=== PATIENT | female | born 1955 | race Caucasian/White ===

== ENCOUNTER → 2016-09-02 | Outpatient (CLI) | payer BC ==
--- NOTE | 2016-09-05 07:12 | USB ---
Reason for exam: clinical finding. History: Patient is postmenopausal. Family history of breast cancer in sister at age 60. Took estrogen for 5 years 9 months beginning at age 49. US Breast LT Left breast ultrasound including all four quadrants, the retroareolar region and axilla demonstrates no cystic or solid lesion seen. These results were verbally communicated with the patient and result sheet given to the patient on 09/02/16. ASSESSMENT: Negative, BI-RAD 1 RECOMMENDATION: Routine screening mammogram of both breasts in 1 year. Manage patient on a clinical basis.
--- NOTE | 2016-09-05 07:12 | MM ---
Reason for exam: clinical finding. Last mammogram was performed 10 months ago. History: Patient is postmenopausal. Family history of breast cancer in sister at age 60. Took estrogen for 5 years 9 months beginning at age 49. Physical Findings: Nurse did not find any significant physical abnormalities on exam. MG 3D Diag Mammo W/Cad VIRGEN Bilateral CC and MLO view(s) were taken. Prior study comparison: October 26, 2015, bilateral MG screening mammo w CAD. The breast tissue is heterogeneously dense. This may lower the sensitivity of mammography. No significant new findings when compared with previous films. These results were verbally communicated with the patient and result sheet given to the patient on 09/02/16. ASSESSMENT: Benign, BI-RAD 2 RECOMMENDATION: Routine screening mammogram of both breasts in 1 year. Manage patient on a clinical basis.
== END | disposition home or self-care (01) ==
LOC: RADMAMWWP 13:23
PROVIDERS: ATTEND Family Medicine
DX: N64.52 Nipple discharge (principal)
CPT/HCPCS: 76641; G0204; G0279

== ENCOUNTER → 2018-03-28 | Outpatient (CLI) | payer BC ==
--- NOTE | 2018-03-30 11:47 | MM ---
Reason for exam: screening (asymptomatic). Last mammogram was performed 1 year and 7 months ago. History: Patient is postmenopausal. Family history of breast cancer in sister at age 60. Took estrogen for 5 years 9 months beginning at age 49. Physical Findings: A clinical breast exam by your physician is recommended on an annual basis and results should be correlated with mammographic findings. MG 3D Screening Mammo W/Cad Bilateral CC and MLO view(s) were taken. Prior study comparison: September 02, 2016, bilateral MG 3d diag mammo w/cad VIRGEN. October 26, 2015, bilateral MG screening mammo w CAD. No significant changes when compared with prior studies. ASSESSMENT: Benign, BI-RAD 2 RECOMMENDATION: Routine screening mammogram of both breasts in 1 year.
== END | disposition home or self-care (01) ==
LOC: RADMAMWWP 12:57
PROVIDERS: ATTEND Family Medicine
DX: Z12.31 Encounter for screening mammogram for malignant neoplasm of breast (principal)
CPT/HCPCS: 77063; 77067

== ENCOUNTER → 2018-07-30 | Outpatient (CLI) | payer BC ==
--- NOTE | 2018-07-31 11:30 | USB ---
Reason for exam: clinical finding. Patient complains of intermittent left breast pain and lump for 2 months. History: Patient is postmenopausal. Family history of breast cancer in sister at age 60. Took estrogen for 5 years 9 months beginning at age 49. Physical Findings: Nurse Summary: Small pea size tender nodule at patients area of concern. US Breast LT complete breast ultrasound includes all four quadrants, the retroareolar region and axilla. Finding demonstrates no cystic or solid lesion seen. ASSESSMENT: Negative, BI-RAD 1 RECOMMENDATION: Clinical management of the left breast manage left breast pain on a clinical basis. Routine screening mammogram of both breasts in 8 months.
== END ==
LOC: RADUSWWP 14:55
PROVIDERS: ATTEND Family Medicine
DX: N64.4 Mastodynia (principal)

== ENCOUNTER → 2018-09-06 | Outpatient (CLI) | payer BC ==
[2018-09-06 16:03] VITALS: BP 111/71; PULSE 62; RESP 18; TEMP 97
--- NOTE | 2018-09-06 16:45 | P.GSHP ---
History of Present Illness H&P Date: 09/06/18 Chief Complaint: left breast lump Lulu is a 62-year-old white female who presents with a complaint of a area of increased nodularity and tenderness in the lateral aspect of the left breast. She had a bilateral mammogram in March 2018 which was BIRADS 1. The patient then in May noted an area of increased nodularity in the lateral aspect of the left breast and an ultrasound was performed in July 2018 which did not reveal any cystic or solid lesions. She states that the area of nodularity is pea-sized and freely mobile. She states it is also tender. The patient states she did have something like this in the past and she decreased her caffeine intake with decrease in the tenderness and size of the lesion. The patient drinks one cup of coffee in the morning and an ice tea at lunch. The patient does not smoke nor she exposed to secondhand smoke. The patient eats chocolate on a daily basis. Family History: sister: breast cancer at 60 Hormonal History: menarche: 9 : 3, 3 children, breast fed: yes, first at 26 menopause: 50 BCP: none caused migrains hormone: hormones for 10 years; off for 12 years Surgical history: 1. Tonsils and adenoids 2. 3 C-sections 3. Hiatal hernia repair Medical history: 1.hypothyroid 2. essential tremor Social History: smoke: none alcohol: two glasses of wine/day drugs: none - Constitutional Constitutional: Denies chills, Denies fever - EENT Eyes: denies blurred vision, denies pain Ears: deny: decreased hearing, tinnitus Ears, nose, mouth and throat: Reports headache - Breasts Breasts: bilateral: as per HPI - Cardiovascular Cardiovascular: Denies chest pain, Denies shortness of breath - Respiratory Respiratory: Denies cough, Denies 7 - Gastrointestinal Gastrointestinal: Denies abdominal pain, Denies diarrhea, Denies nausea, Denies vomiting - Genitourinary (Female) Genitourinary: Denies dysuria, Denies hematuria - Menstruation Menstruation: Reports postmenopausal - Musculoskeletal Comment: arthritis Musculoskeletal: Reports muscle cramps - Integumentary Integumentary: Denies pruritus, Denies rash - Neurological Comment: Essential tremor Neurological: Denies numbness, Denies weakness - Psychiatric Psychiatric: Denies anxiety, Denies depression - Endocrine Comment: hypothyroid Endocrine: Denies fatigue, Denies weight change - Hematologic/Lymphatic Comment: none - Allergic/Immunologic Allergic/Immunologic: Reports seasonal allergies Past Medical History Past Medical History: Thyroid Disorder Additional Past Medical History / Comment(s): essential tremor History of Any Multi-Drug Resistant Organisms: None Reported Past Surgical History: Adenoidectomy, Section, Hernia Repair, Tonsillectomy Additional Past Surgical History / Comment(s): section x3 1980, 1981, 1986; Smoking Status: Never smoker - Past Family History Father Additional Family Medical History / Comment(s): heart disease Mother Additional Family Medical History / Comment(s): heart disease Sister(s) Family Medical History: Cancer Additional Family Medical History / Comment(s): breast cancer Medications and Allergies Home Medications Medication Instructions Recorded Confirmed Type Baclofen [Lioresal] 10 mg PO HS 09/06/18 09/06/18 History Cetirizine HCl [Zyrtec] 10 mg PO HS 09/06/18 09/06/18 History Fluticasone Nasal [place] [Flonase 1 spray EA NOSTRIL DAILY 09/06/18 09/06/18 History Nasal [place]] Levothyroxine Sodium [Synthroid] 112 mcg PO QAM 09/06/18 09/06/18 History Nadolol [Corgard] 20 mg PO BID 09/06/18 09/06/18 History Allergies Allergy/AdvReac Type Severity Reaction Status Date / Time No Known Allergies Allergy Unverified 09/06/18 15:54 Surgical - Exam Vital Signs Temp Pulse Resp BP Pulse Ox 97.0 F L 62 18 111/71 97 09/06/18 15:58 09/06/18 15:58 09/06/18 15:58 09/06/18 15:58 09/06/18 15:58 BMI 23 - General well developed, well nourished, no distress - Eyes normal ocular movement - ENT no hearing loss, no congestion - Neck no masses, trachea midline - Respiratory normal respiratory effort, clear to auscultation - Cardiovascular Rhythm: regular Heart Sounds: normal: S1, S2 - Abdomen Abdomen: soft - Integumentary normal turgor - Musculoskeletal normal gait, normal posture - Psychiatric oriented to time, oriented to person, oriented to place, speech is normal, memory intact Breast examination: Right breast: Multi-positional exam no dominant masses or nodules of concern, fibrocystic changes Right axilla: No adenopathy of concern Left breast: Multi-positional exam no dominant masses or nodules of concern, fibrocystic change, fibrocystic changes greatest in the upper quadrant area Left axilla: No adenopathy of concern Results Mammogram of March 2018 as well as ultrasound of the left breast of July 2018 results reviewed Assessment and Plan Assessment: Impression: 1. Mastodynia left breast 2. Cystic changes left breast 3. Fibrocystic changes bilaterally 4. Essential tremor 5. hypothyroidism 6. Family history of breast cancer Plan: 1. Patient is going to attempt to decrease caffeine intake as well as chocolate intake 2. Monthly breast self exam 3. Medical management of medical conditions 4. Repeat bilateral mammogram and physician exam in March 2019 Cc: Dr. Cyndi Lugo
== END ==
LOC: WWCWWP 15:41
PROVIDERS: ATTEND Surgery
DX: Z53.9 Procedure and treatment not carried out, unspecified reason (principal)

== ENCOUNTER 2019-09-09 20:26 | Emergency (ER) | payer MEDICARE ==
[2019-09-09 20:30] VITALS: BP 135/84; PULSE 72; RESP 16; TEMP 98.5
[2019-09-09] MEDS ORDERED: KETOROLAC 60 MG/2 ML VIAL IM STA (21:22)
--- NOTE | 2019-09-09 21:35 | ED ---
General Adult HPI - General Chief complaint: Skin/Abscess/Foreign Body Stated complaint: infected pain cath Time Seen by Provider: 09/09/19 20:42 Source: patient, RN notes reviewed, old records reviewed Mode of arrival: ambulatory Limitations: no limitations - History of Present Illness Initial comments: 63-year-old female patient status post total right knee replacement 3 days ago presents to ED for evaluation of which she believes may be infection and nerve block. Patient does have a nerve block noted in her right anterior thigh region. Patient reports that she is due to have a nerve block removed today. Does report that she has pain in her right knee however denies any other complaints. Systemic: Pt denies fatigue, fever/chills, rash. Pt denies weakness, night sweats, weight loss. Neuro: Pt denies headache, visual disturbances, syncope or pre-syncope. HEENT: Pt denies ocular discharge or irritation, otalgia, rhinorrhea, pharyngitis or notable lymphadenopathy. Cardiopulmonary: Pt denies chest pain, SOB, heart palpitations, dyspnea on exertion. Abdominal/GI: Pt denies abdominal pain, n/v/d. : Pt denies dysuria, burning w/ urination, frequency/urgency. Denies new onset urinary or bowel incontinence. MSK: Pt denies myalgia, loss of strength or function in extremities. Neuro: Pt denies new onset weakness, paresthesias. - Related Data Home Medications Medication Instructions Recorded Confirmed Baclofen [Lioresal] 10 mg PO HS 09/06/18 09/06/18 Cetirizine HCl [Zyrtec] 10 mg PO HS 09/06/18 09/06/18 Fluticasone Nasal [place] [Flonase 1 spray EA NOSTRIL DAILY 09/06/18 09/06/18 Nasal [place]] Levothyroxine Sodium [Synthroid] 112 mcg PO QAM 09/06/18 09/06/18 Nadolol [Corgard] 20 mg PO BID 09/06/18 09/06/18 Allergies Allergy/AdvReac Type Severity Reaction Status Date / Time No Known Allergies Allergy Unverified 09/06/18 15:54 Review of Systems ROS Statement: Those systems with pertinent positive or pertinent negative responses have been documented in the HPI. ROS Other: All systems not noted in ROS Statement are negative. Past Medical History Past Medical History: Thyroid Disorder Additional Past Medical History / Comment(s): essential tremor History of Any Multi-Drug Resistant Organisms: None Reported Past Surgical History: Adenoidectomy, Section, Hernia Repair, Tonsillectomy Additional Past Surgical History / Comment(s): section x3 1980, 1981, 1986; right knee Past Psychological History: No Psychological Hx Reported Smoking Status: Never smoker Past Alcohol Use History: Occasional Past Drug Use History: None Reported - Past Family History Father Additional Family Medical History / Comment(s): heart disease Mother Additional Family Medical History / Comment(s): heart disease Sister(s) Family Medical History: Cancer Additional Family Medical History / Comment(s): breast cancer General Exam - General Exam Comments Initial Comments: Constitutional: NAD, AOX3, Pt has pleasant affect. HEENT: NC/AT, trachea midline, neck supple, no lymphadenopathy. Posterior pharynx non erythematous, without exudates. External ears appear normal, without discharge. Mucous membranes moist. Eyes PERRLA, EOM intact. There is no scleral icterus. No pallor noted. Cardiopulmonary: RRR, no murmurs, rubs or gallops, no JVD noted. Lungs CTAB in anterior and posterior herbert. No peripheral edema. Abdominal exam: Abdomen soft and non-distended. Abdomen non-tender to palpation in all 4 quadrants. Bowel sounds active in LLQ. No hepatosplenomegaly. No ecchymosis Neuro: CN II-XII grossly intact. No nuchal rigidity. No raccon eyes, no lynch sign, no hemotympanum. No cervical spinal tenderness. MSK: No erythema surrounding insertion of a nerve block. Removed without difficulty. Right knee does feel mildly warm, no erythema noted, patient declined removing dressing. Small amount of erythema noted and medial aspect of the knee, does not appear to be streaking from incision site. No posterior calf tenderness bilaterally, homans sign negative bilaterally. Posterior tibialis and radial pulse +2 bilaterally. Sensation intact in upper and lower extremities. Full active ROM in upper and lower extremities, 5/5 stregnth. Limitations: no limitations Course Vital Signs 09/09/19 20:28 Temperature 98.5 F Pulse Rate 72 Respiratory 16 Rate Blood Pressure 135/84 O2 Sat by Pulse 97 Oximetry Medical Decision Making - Medical Decision Making 63-year-old female patient status post total right knee replacement 3 days ago presents to ED for evaluation of which she believes may be infection and nerve block. Patient does have a nerve block noted in her right anterior thigh region. Patient reports that she is due to have a nerve block removed today. Does report that she has pain in her right knee however denies any other complaints. Pt VSS, afebrile. No erythema surrounding insertion of a nerve block. At patient request. Removed without difficulty. Right knee does feel mildly warm, small amount of erythema noted at medial aspect of knee, ROM intact. patient declined removing dressing. Patient states that she will follow up with surgeon tomorrow. Explained that I was not able to rule out infection without evaluating incision site, she verbalizes understanding. She denies any chest pain or shortness of breath. Denies any pain in her calf region. Patient was administered a dose of Toradol, denies any history of kidney disease. Will follow up with primary care and surgeon tomorrow. Case discussed with Dr. Gonzalez. Disposition Clinical Impression: S/P knee replacement Disposition: HOME SELF-CARE Condition: Stable Instructions (If sedation given, give patient instructions): Knee Replacement (DC) Additional Instructions: Follow-up with surgeon tomorrow. Continue to monitor for redness drainage. Return to ER if condition worsens in any way. Return to ER if fevers or chills or any systemic signs of infection develop. Is patient prescribed a controlled substance at d/c from ED?: No Referrals: Cyndi Lugo DO [Primary Care Provider] - 1-2 days
== END 2019-09-09 21:49 | disposition home or self-care (01) ==
LOC: EC 20:26
DX: M25.561 Pain in right knee (principal); L53.9 Erythematous condition, unspecified; E07.9 Disorder of thyroid, unspecified; Z79.890 Hormone replacement therapy; Z96.651 Presence of right artificial knee joint; Z98.890 Other specified postprocedural states
CPT/HCPCS: 96372; 99283; J1885

== ENCOUNTER → 2020-03-10 | Outpatient (CLI) | payer MEDICARE ==
--- NOTE | 2020-03-11 09:36 | MM ---
Reason for exam: screening (asymptomatic). Last mammogram was performed 1 year and 11 months ago. History: Patient is postmenopausal. Family history of breast cancer in sister at age 60. Took estrogen for 5 years 9 months beginning at age 49. Physical Findings: A clinical breast exam by your physician is recommended on an annual basis and results should be correlated with mammographic findings. MG 3D Screening Mammo W/Cad Bilateral CC and MLO view(s) were taken. Prior study comparison: March 28, 2018, bilateral MG 3d screening mammo w/cad. September 02, 2016, bilateral MG 3d diag mammo w/cad VIRGEN. The breast tissue is heterogeneously dense. This may lower the sensitivity of mammography. Increasing right retroareolar density. ASSESSMENT: Incomplete: need additional imaging evaluation, BI-RAD 0 RECOMMENDATION: Special view mammogram of the right breast. If lesion persists on supplemental views, image directed ultrasound is recommended. [facility] will attempt to contact patient to return for supplemental views and ultrasound if indicated.
== END | disposition home or self-care (01) ==
LOC: RADMAMWWP 16:03
PROVIDERS: ATTEND Family Medicine
DX: Z12.31 Encounter for screening mammogram for malignant neoplasm of breast (principal); Z80.3 Family history of malignant neoplasm of breast
CPT/HCPCS: 77063; 77067

== ENCOUNTER → 2020-03-16 | Outpatient (CLI) | payer MEDICARE ==
--- NOTE | 2020-03-16 09:54 | MM ---
Reason for exam: additional evaluation requested from abnormal screening. Last mammogram was performed less than 1 month ago. History: Patient is postmenopausal. Family history of breast cancer in sister at age 60. Took estrogen for 5 years 9 months beginning at age 49. Physical Findings: Nurse did not find any significant physical abnormalities on exam. MG 3D Work Up W/Cad RT Spot compression CC, spot compression MLO, and LM view(s) were taken of the right breast. Prior study comparison: March 10, 2020, bilateral MG 3d screening mammo w/cad. March 28, 2018, bilateral MG 3d screening mammo w/cad. There is no discrete abnormality including area of concern. These results were verbally communicated with the patient and result sheet given to the patient on 03/16/20. ASSESSMENT: Probably benign, BI-RAD 3 RECOMMENDATION: Follow-up diagnostic mammogram of the right breast in 6 months.
== END | disposition home or self-care (01) ==
LOC: RADMAMWWP 08:14
PROVIDERS: ATTEND Family Medicine
DX: R92.8 Other abnormal and inconclusive findings on diagnostic imaging of breast (principal)
CPT/HCPCS: 77065; G0279; 77061

== ENCOUNTER → 2020-10-16 | Outpatient (CLI) | payer MEDICARE ==
--- NOTE | 2020-10-16 15:02 | MM ---
Reason for exam: additional evaluation requested from prior study. Last mammogram was performed 7 months ago. History: Patient is postmenopausal. Family history of breast cancer in sister at age 60. Took estrogen for 5 years 9 months beginning at age 49. Physical Findings: Nurse Summary: 1cm nodule in the left breast at 1 o'clock (nurse mj). MG 3D Diag Mammo W/Cad RT CC and MLO view(s) were taken of the right breast. Prior study comparison: March 16, 2020, right breast MG 3d work up w/cad RT. March 10, 2020, bilateral MG 3d screening mammo w/cad. The breast tissue is heterogeneously dense. This may lower the sensitivity of mammography. These results were verbally communicated with the patient and result sheet given to the patient on 10/16/20. ASSESSMENT: Benign, BI-RAD 2 RECOMMENDATION: Ultrasound. (left ultrasound for palpable) Follow-up diagnostic mammogram of both breasts in 6 months.
--- NOTE | 2020-10-16 15:03 | USB ---
Reason for exam: additional evaluation requested from abnormal screening. History: Patient is postmenopausal. Family history of breast cancer in sister at age 60. Took estrogen for 5 years 9 months beginning at age 49. US Breast Limited LT Left limited breast ultrasound including focal area of concern, retroareolar and axilla demonstrates a 1.1 x 0.6 x 0.5cm oval lymph node at 2 o'clock. These results were verbally communicated with the patient and result sheet given to the patient on 10/16/20. ASSESSMENT: Probably benign, BI-RAD 3 RECOMMENDATION: Follow-up diagnostic mammogram of both breasts in 6 months. Back on schedule.
== END | disposition home or self-care (01) ==
LOC: RADMAMWWP 13:37
PROVIDERS: ATTEND Family Medicine
DX: R92.8 Other abnormal and inconclusive findings on diagnostic imaging of breast (principal)
CPT/HCPCS: 77065; 76642; G0279; 77061

== ENCOUNTER → 2021-04-29 | Outpatient (CLI) | payer MEDICARE ==
--- NOTE | 2021-04-29 14:54 | MM ---
Reason for exam: additional evaluation requested from prior study. Last mammogram was performed 6 months ago. History: Patient is postmenopausal. Family history of breast cancer in sister at age 60. Took estrogen for 5 years 9 months beginning at age 49. Physical Findings: A clinical breast exam by your physician is recommended on an annual basis and results should be correlated with mammographic findings. MG 3D Diag Mammo W/Cad VIRGEN Bilateral CC and MLO view(s) were taken. LM, CC with magnification, and LM with magnification view(s) were taken of the right breast. Prior study comparison: October 16, 2020, right breast MG 3d diag mammo w/cad RT. March 10, 2020, bilateral MG 3d screening mammo w/cad. March 28, 2018, bilateral MG 3d screening mammo w/cad. The breast tissue is heterogeneously dense. This may lower the sensitivity of mammography. Question subtle grouped calcifications anterior upper inner quadrant right breast do not seem to persist on magnification views. 6 month follow up as a precautionary measure. These results were verbally communicated with the patient and result sheet given to the patient on 04/29/21. ASSESSMENT: Probably benign, BI-RAD 3 RECOMMENDATION: Follow-up diagnostic mammogram of the right breast in 6 months.
== END | disposition home or self-care (01) ==
LOC: RADMAMWWP 13:54
PROVIDERS: ATTEND Family Medicine
DX: R92.2 Inconclusive mammogram (principal); Z80.3 Family history of malignant neoplasm of breast
CPT/HCPCS: 77066; G0279; 77062

== ENCOUNTER → 2022-06-07 | Outpatient (CLI) | payer MEDICARE ==
--- NOTE | 2022-06-08 08:25 | MM ---
Reason for Exam: Screening (asymptomatic). Last mammogram was performed 1 year(s) and 1 month(s) ago. Patient History: Menarche at age 9. First Full-Term at age 26. Postmenopausal. Estrogen, starting at age 49 for 5 years, 9 months. Sister had breast cancer, age 60. Risk Values: Racheal 5 year model risk: 3.7%. NCI Lifetime model risk: 11.6%. Prior Study Comparison: 10/16/2020 Right Diagnostic Mammogram, [facility]. 04/29/2021 Bilateral Diagnostic Mammogram, [facility]. 10/29/2021 Right Diagnostic Mammogram, [facility]. Tissue Density: The breast tissue is heterogeneously dense. This may lower the sensitivity of mammography. Findings: Analyzed By CAD. There is no suspicious group of microcalcifications or new suspicious mass in either breast. Overall Assessment: Negative, BI-RAD 1 Management: Screening Mammogram of both breasts in 1 year. A clinical breast exam by your physician is recommended on an annual basis and results should be correlated with mammographic findings. [facility] will attempt to contact patient to return for supplemental views and ultrasound if indicated. Electronically signed and approved by: Jona Henson DO
== END | disposition home or self-care (01) ==
LOC: RADMAMWWP 13:49
PROVIDERS: ATTEND Family Medicine
DX: Z12.31 Encounter for screening mammogram for malignant neoplasm of breast (principal); Z78.0 Asymptomatic menopausal state; Z80.3 Family history of malignant neoplasm of breast
CPT/HCPCS: 77063; 77067

== ENCOUNTER → 2023-07-04 | Outpatient (CLI) | payer MEDICARE ==
--- NOTE | 2023-07-06 09:03 | MM ---
Reason for Exam: Screening (asymptomatic). Last mammogram was performed 1 year(s) and 1 month(s) ago. Patient History: Menarche at age 9. First Full-Term at age 26. Postmenopausal. Patient has history of breast feeding. Estrogen, starting at age 49 for 5 years, 9 months. Sister had breast cancer, age 60. Risk Values: Racheal 5 year model risk: 3.7%. NCI Lifetime model risk: 11.1%. Prior Study Comparison: 04/29/2021 Bilateral Diagnostic Mammogram, [facility]. 10/29/2021 Right Diagnostic Mammogram, [facility]. 06/07/2022 Bilateral MG 3D screening mammo w/cad, [facility]. Tissue Density: The breast tissue is heterogeneously dense. This may lower the sensitivity of mammography. Findings: Analyzed By CAD. There is no suspicious group of microcalcifications or new suspicious mass. Overall Assessment: Negative, BI-RAD 1 Management: Screening Mammogram of both breasts in [address] [facility] will attempt to contact patient to return for supplemental views and ultrasound if indicated. Patient should continue monthly self-breast exams. A clinical breast exam by your physician is recommended on an annual basis. This exam should not preclude additional follow-up of suspicious palpable abnormalities. Note on Racheal scores and lifetime risk: 1. A Racheal score greater than 3% is considered moderate risk. If this is the case, consider specialist referral to assess eligibility for a risk reducing agent. 2. If overall lifetime risk for the development of breast cancer is 20% or higher, the patient may qualify for future screening with alternating mammogram and breast MRI. Electronically signed and approved by: Jona Henson DO
== END | disposition home or self-care (01) ==
LOC: RADMAMWWP 10:53
PROVIDERS: ATTEND Family Medicine
DX: Z12.31 Encounter for screening mammogram for malignant neoplasm of breast (principal); Z80.3 Family history of malignant neoplasm of breast; Z78.0 Asymptomatic menopausal state
CPT/HCPCS: 77063; 77067

== ENCOUNTER → 2024-07-05 | Outpatient (CLI) | payer MEDICARE ==
--- NOTE | 2024-07-07 03:34 | MM ---
Reason for Exam: Screening (asymptomatic). Last screening mammogram was performed 12 month(s) ago. Patient History: Menarche at age 9. First Full-Term at age 26. Postmenopausal. Patient has history of breast feeding. Estrogen, starting at age 49 for 5 years, 9 months. Sister had breast cancer, age 60. Risk Values: Racheal 5 year model risk: 3.7%. NCI Lifetime model risk: 10.6%. Prior Study Comparison: 10/29/2021 Right Diagnostic Mammogram, [facility]. 06/07/2022 Bilateral MG 3D screening mammo w/cad, [facility]. 07/04/2023 Bilateral MG 3D screening mammo w/cad, [facility]. Tissue Density: The breasts are heterogeneously dense, which may obscure small masses. Findings: Analyzed By CAD. The pattern is symmetrical. No significant interval change is evident No suspicious groups of microcalcifications, spiculated or lobular masses, architectural distortion or other secondary signs of malignancy are mammographically apparent. Overall Assessment: Benign, BI-RAD 2 Management: Screening Mammogram of both breasts in 1 year. A negative mammogram report should not preclude additional follow up of suspicious palpable abnormalities. Patient should continue monthly self breast exam. A clinical breast exam by your physician is recommended on an annual basis and results should be correlated with mammographic findings. Note on Racheal scores and lifetime risk: 1. A Racheal score greater than 3% is considered moderate risk. If this is the case, consider specialist referral to assess eligibility for a risk reducing agent. 2. If overall lifetime risk for the development of breast cancer is 20% or higher, the patient may qualify for future screening with alternating mammogram and breast MRI. [facility], , 07/07/2024 3:31 AM. Electronically signed and approved by: Abdiaziz Smith D.O. Radiologis
== END | disposition home or self-care (01) ==
LOC: RADMAMWWP 13:33
PROVIDERS: ATTEND Family Medicine
DX: Z12.31 Encounter for screening mammogram for malignant neoplasm of breast (principal); R92.333 Mammographic heterogeneous density, bilateral breasts; Z78.0 Asymptomatic menopausal state; Z80.3 Family history of malignant neoplasm of breast
CPT/HCPCS: 77063; 77067

== ENCOUNTER → 2025-02-03 | Outpatient (CLI) | payer MEDICARE ==
--- NOTE | 2025-02-03 13:19 | CA ---
Exercise Stress Test Report Name: Lulu Castro Exam Date: 02/03/2025 09:55 Exam Location: [facility] [facility] Ht (in): 63 Wt (lb): 155 BSA: 1.74 Ordering Phys: Shane Sanchez MD Referring Phys: Ann Marie Goode Technologist: MARU Age: 69 Gender: F : 1955 Procedure CPT: Indications: R07.9 CHEST PAIN, UNSPECIFIED ICD-10 Codes: Patient History: Medications: Meds past 24 hrs: Pretest Chest Pain: STRESS TEST Jean Pierre Protocol Exercise Duration (min:sec): 07:[address] Depressions (mm): Angina Score: Mackay Score: Resting HR (bpm): 72 Peak HR (bpm): 147 Resting BP (mmHg): 147 / 89 Peak BP (mmHg): 206 / 88 MPHR: 149 Target HR: 127 % MPHR: 99 METS: 9.5 Total Dose: Peak Dose: Atropine: Double Product: 04127 BP Response: Stress Termination: Reached target heart rate Stress Symptoms: No chest pain or symptoms Stress Summary: ECG ANALYSIS Resting ECG: Stress ECG: CONCLUSIONS Good exercise tolerance Mild EKG changes in response to exercise Overall nondiagnostic stress test Dr. Junaid Horner MD (Electronically Signed) Final Date: 03 February 2025 13:18
== END | disposition home or self-care (01) ==
LOC: RADNMMAIN 09:28
PROVIDERS: ATTEND Family Medicine
DX: R07.9 Chest pain, unspecified (principal); R94.31 Abnormal electrocardiogram [ECG] [EKG]
CPT/HCPCS: 93017